=== PATIENT | female | born 1975 | race Caucasian/White ===

== ENCOUNTER → 2018-05-31 15:30 | Outpatient (CLI) | payer OTHER, SELFPAY ==
--- NOTE | 2018-05-31 15:34 | RAD_ITS ---
STUDY: X-RAY - LEFT KNEE REASON FOR EXAM: Female, 42 years old. Pain TECHNIQUE: Four view(s) of the knee were obtained. COMPARISON: None. FINDINGS: The distal femur is unremarkable. The proximal tibia is unremarkable. Normal medial femorotibial compartment. Normal lateral femorotibial compartment. Normal patellofemoral articulation. There is minimal fullness above the patella. The soft tissue structures are unremarkable. RAD/Knee 4 or More Views IMPRESSION: There are no significant osseous abnormalities. There is a small joint effusion which can indicate internal derangement. Electronically Signed: Nicolasa Caballero MD at 0:07 EDT Tel Direct: [phone], Service support ,
== END ==
PROVIDERS: Family Provider Family Medicine; PCP Family Medicine; Referring Provider Family Medicine; Visit Provider Family Medicine
DX: M25.561 Pain in right knee (principal)
CPT/HCPCS: 73564

== ENCOUNTER → 2019-05-11 16:28 | Outpatient (CLI) | payer OTHER, SELFPAY ==
--- NOTE | 2019-05-11 16:31 | RAD_ITS ---
STUDY: X-RAY - CERVICAL SPINE REASON FOR EXAM: Female, 43 years old. Neck pain TECHNIQUE: 5 view(s) of the cervical spine were obtained. COMPARISON: None FINDINGS: Normal anterior atlantoaxial articulation. Normal odontoid process. Normal cervical lordosis. Degenerative disc disease at C4-5 and C5-6 levels. Normal visualized intervertebral neuroforamina. The soft tissue structures are unremarkable. RAD/Cerv Spine 4 or 5 Views IMPRESSION: Degenerative disc disease at C4-5 and C5-6 levels. Electronically Signed: Chinmay Rowley MD at 17:23 EDT Tel , Service support ,
== END ==
PROVIDERS: Family Provider Family Medicine; PCP Family Medicine; Referring Provider Family Medicine; Visit Provider Family Medicine
DX: M50.321 Other cervical disc degeneration at C4-C5 level (principal)
CPT/HCPCS: 72050

== ENCOUNTER → 2021-07-20 11:00 | Outpatient (CLI) | payer OTHER, SELFPAY ==
--- NOTE | 2021-07-20 11:03 | RAD_ITS ---
STUDY: X-RAY - UNILATERAL RIBS ( RIGHT ) WITH CHEST REASON FOR EXAM: Female, 45 years old. Pain and bruising on lower and posterior ribs, right greater than left. TECHNIQUE - RIBS: 2 view(s) of the ribs. TECHNIQUE - CHEST: Single frontal view of the chest. COMPARISON: None. FINDINGS - RIBS: Normal visualized ribs without a demonstrated fracture. FINDINGS - CHEST: The lungs are clear and expanded. There is no demonstrated pleural abnormality. Normal size heart. Normal mediastinum and stefanie. Normal visualized pulmonary arteries. Normal visualized aortic arch and descending thoracic aorta. Thoracic spondylosis. Normal visualized ribs, clavicles, and shoulders. There is no demonstrated abnormality of the visualized soft tissue structures of the upper abdomen. RAD/Ribs Uni Min 3V w/PA Chest IMPRESSION: RIBS: Normal x-ray examination of the ribs. CHEST: No active or acute cardiopulmonary disease. Electronically Signed: Alonso Lemus MD at 12:58 EST , Service support ,
== END ==
PROVIDERS: PCP Family Medicine; Referring Provider Family Medicine; Visit Provider Family Medicine
DX: S22.39XA Fracture of one rib, unspecified side, initial encounter for closed fracture (principal)
CPT/HCPCS: 71101

== ENCOUNTER → 2022-06-25 | Outpatient (CLI) | payer OTHER, SELFPAY ==
[2022-06-25 17:47] LABS: Absolute Lymphocyte Count 2.37 X10^3/uL (0.83-4.51); Absolute Neutrophil Count 6.6 X10^3/uL (2.0-7.7); Basophil# 0.05 X10^3/uL; Basophil% 0.5 % (0-1); Eosinophil# 0.12 X10^3/uL; Eosinophils% 1.2 % (0-5); Hematocrit 41.5 % (37-47); Hemoglobin 13.7 g/dL (12.0-15.0); Lymphocyte # 2.37 X10^3/ul (0.83-4.51); Lymphocyte % 24.1 % (19-41); Mean Corpuscular Volume 84.7 fL (81-99); Mean Platelet Vol. 11.7 fl (6.2-12.0); Monocyte# 0.62 X10^3/uL; Monocyte% 6.3 % (0-10); NRBC Flagged by Analyzer 0 % (0-5); Neutrophil # 6.62 X10^3/uL (2.7-7.7); Neutrophil % 67.5 % (47-70); Platelet Count 219 K/mm3 (150-450); RBC Distribution Width CV 12.9 % (11.6-14.6); RBC Distribution Width SD 39.2 fl (35.1-43.9); White Blood Count 9.8 K/mm3 (4.4-11.0)
[2022-06-25 18:28] LABS: ALB/GLOB Ratio 1.1 RATIO (0.9-2.4); AST(SGOT) 21 U/L (15-37); Alanine Aminotransfer ALT/SGPT 31 U/L (13-56); Albumin, Serum 3.8 g/dL (3.2-5.0); Alkaline Phosphatase 69 U/L (45-117); Anion Gap 5 (5-15); BUN 14 mg/dL (7-18); BUN/Creat Ratio 21.1 RATIO (10-20); Calcium,Total 8.7 mg/dL (8.5-10.1); Chloride 105 mmol/L (98-107); Creatinine, Serum 0.66 mg/dL (0.55-1.02); EST Glomerular Filtration Rate 100 mL/min (>60); Est Glom Filt Rate - Afr Amer 122 mL/min (>60); Globulin 3.6 g/dL (2.2-4.2); Glucose 85 mg/dL (74-106); Potassium 3.5 mmol/L (3.5-5.1); Protein, Total 7.4 g/dL (6.4-8.2); Sodium Level 139 mmol/L (136-145); Thyroid Stim Hormone (TSH) 1.62 uIU/mL (0.358-3.74)
== END | disposition home or self-care (01) ==
LOC: MTLAB 16:01
PROVIDERS: PCP Family Medicine; Referring Provider Nurse Practitioner Family; Visit Provider Nurse Practitioner Family
DX: R53.83 Other fatigue (principal)
CPT/HCPCS: 36415; 80053; 84443; 85025

== ENCOUNTER → 2022-10-25 | Outpatient (CLI) | payer OTHER, SELFPAY ==
[2022-10-25 17:34] LABS: Hematocrit 47.4 % (37-47); Hemoglobin 15.7 g/dL (12.0-15.0); Mean Corp Hgb Conc 33.1 g/dL (32-36); Mean Corpuscular Hgb 27.6 pg (27.0-32.0); Mean Corpuscular Volume 83.5 fL (81-99); Platelet Count 294 K/mm3 (150-450); RBC Distribution Width CV 12.6 % (11.6-14.6); RBC Distribution Width SD 37.7 fl (35.1-43.9); Red Blood Count 5.68 M/mm3 (4.2-5.4); White Blood Count 8.3 K/mm3 (4.4-11.0)
[2022-10-25 17:55] LABS: Anion Gap 11 (5-15); BUN 11 mg/dL (7-18); BUN/Creat Ratio 12.7 RATIO (10-20); Calcium,Total 9.4 mg/dL (8.5-10.1); Chloride 103 mmol/L (98-107); Creatinine, Serum 0.86 mg/dL (0.55-1.02); EST Glomerular Filtration Rate 74 mL/min (>60); Est Glom Filt Rate - Afr Amer 90 mL/min (>60); Glucose 117 mg/dL (74-106); Potassium 3.4 mmol/L (3.5-5.1); Sodium Level 139 mmol/L (136-145)
== END | disposition home or self-care (01) ==
PROVIDERS: PCP Family Medicine; Visit Provider Nurse Practitioner Family
DX: R31.9 Hematuria, unspecified (principal); R11.0 Nausea
CPT/HCPCS: 36415; 80048; 85027; 87086; 87088

== ENCOUNTER 2024-01-30 11:55 | Outpatient (CLI) | payer OTHER, SELFPAY ==
[2024-01-30 16:40] LABS: Hemoglobin A1c 5.3 % (3.8-5.6)
[2024-01-30 16:54] LABS: Vitamin B12 248 pg/mL (211-911)
[2024-01-30 17:03] LABS: Thyroid Stim Hormone (TSH) 0.53 uIU/mL (0.358-3.74)
== END 2024-01-30 23:59 | disposition home or self-care (01) ==
LOC: MFPLAB 11:58
PROVIDERS: PCP Family Medicine; Visit Provider Family Medicine
DX: R20.2 Paresthesia of skin (principal)
CPT/HCPCS: 36415; 82607; 83036; 84443

== ENCOUNTER → 2024-04-11 | Outpatient (CLI) | payer OTHER, SELFPAY ==
--- NOTE | 2024-04-11 14:27 | NEURO ---
NCS and/or EMG Patient Report Ordering Doctor: Jackson Aleman DATE OF SERVICE: 04/11/24 Yuly presents for electrodiagnostic testing of the lower limbs. She reports numbness and tingling in both feet. She reports difficulty with balance. Electrodiagnostic findings: Left peroneal motor nerve demonstrates normal distal latency, amplitude and conduction velocity. Right peroneal motor nerve demonstrates normal distal latency, amplitude with borderline reduced conduction velocity. Tibial motor responses within normal limits bilaterally. Prolonged left tibial F?wave. Borderline prolonged H?reflex bilaterally. Absent sural response bilaterally. Prolonged left and right superficial peroneal latency. Needle EMG testing was performed the lower limbs. All muscles tested showed no evidence of denervation with normal motor unit action potentials. Electrodiagnostic impression: This is an abnormal study in the lower limbs 1. Electrodiagnostic findings suggestive of peripheral polyneuropathy, with primarily sensory nerve involvement. 2. No electrodiagnostic evidence is noted for lumbosacral radiculopathy. Multi Select Codes Neurology Neurology Interp Codes: 76010-42 Musc test done w/n test comp (interp) (2) and 40965-33 Nrv cndj test 9-10 studies (interp)
== END | disposition home or self-care (01) ==
PROVIDERS: PCP Family Medicine; Referring Provider Orthopaedic Surgery; Visit Provider Orthopaedic Surgery
DX: M54.16 Radiculopathy, lumbar region (principal); R20.2 Paresthesia of skin
CPT/HCPCS: 95886; 95911

== ENCOUNTER 2024-04-30 14:00 | Outpatient (CLI) | payer OTHER, SELFPAY ==
--- NOTE | 2024-05-03 08:56 | EKG12_ITS ---
Test Reason : PRE OP Blood Pressure : / mmHG Vent. Rate : 056 BPM Atrial Rate : 056 BPM P-R Int : 144 ms QRS Dur : 094 ms QT Int : 426 ms P-R-T Axes : 023 015 020 degrees QTc Int : 411 ms Sinus bradycardia Otherwise normal ECG Confirmed by Justin Ruiz ([id number]), book editor LYDIA MCGRATH ([id number]) on 05/04/2024 6:01:33 AM Referred By: Jackson Aleman Confirmed By:Justin Ruiz
--- NOTE | 2024-05-03 09:15 | RAD_ITS ---
INDICATION: PREOP EXAMINATION/TECHNIQUE: X-RAY - XR Chest 2 Views COMPARISON: July 20, 2021 FINDINGS: LINES/DEVICES: None. LUNGS: No consolidation, edema or effusion. No pneumothorax. MEDIASTINUM AND CARDIOVASCULAR STRUCTURES: Cardiac silhouette not enlarged. Central airways and mediastinal contour are unremarkable. BONES AND SOFT TISSUES: Mild degenerative vertebral changes. RAD/Chest PA and Lateral IMPRESSION: No radiographic evidence of acute cardiopulmonary disease. Electronically Signed: Alfredo Toro DO at 17:22 EDT ,
[2024-05-03 10:11] LABS: Absolute Lymphocyte Count 1.54 X10^3/uL (0.83-4.51); Absolute Neutrophil Count 4.8 X10^3/uL (2.0-7.7); Basophil# 0.03 X10^3/uL; Basophil% 0.4 % (0-1); Eosinophil# 0.11 X10^3/uL; Eosinophils% 1.6 % (0-5); Hemoglobin 12.9 g/dL (12.0-15.0); Lymphocyte # 1.54 X10^3/ul (0.83-4.51); Lymphocyte % 22.1 % (19-41); Mean Corp Hgb Conc 33.9 g/dL (32-36); Mean Corpuscular Hgb 28.2 pg (27.0-32.0); Mean Corpuscular Volume 83.2 fL (81-99); Mean Platelet Vol. 11.2 fl (6.2-12.0); Monocyte# 0.45 X10^3/uL; Monocyte% 6.4 % (0-10); NRBC Flagged by Analyzer 0 % (0-5); Neutrophil # 4.77 X10^3/uL (2.7-7.7); Neutrophil % 68.4 % (47-70); Platelet Count 204 K/mm3 (150-450); RBC Distribution Width CV 13.4 % (11.6-14.6); RBC Distribution Width SD 39.8 fl (35.1-43.9); Red Blood Count 4.57 M/mm3 (4.2-5.4)
[2024-05-03 10:27] LABS: Prothrombin Time (Protime)PT. 13.5 SECONDS (11.7-14.9)
[2024-05-03 10:28] LABS: Partial Thromboplast Time 27.1 Seconds (24.1-36.2)
[2024-05-03 11:16] LABS: Anion Gap 6 (5-15); BUN 13 mg/dL (7-18); BUN/Creat Ratio 16.6 RATIO (10-20); Calcium,Total 9.6 mg/dL (8.5-10.1); Chloride 110 mmol/L (98-107); Creatinine, Serum 0.78 mg/dL (0.55-1.02); EST Glomerular Filtration Rate 83 mL/min (>60); Est Glom Filt Rate - Afr Amer 100 mL/min (>60); Glucose 114 mg/dL (74-106); Magnesium 1.9 mg/dL (1.6-2.6); Potassium 3.9 mmol/L (3.5-5.1); Sodium Level 142 mmol/L (136-145)
== END 2024-04-30 23:00 | disposition home or self-care (01) ==
LOC: SDC 10-10 21:54
PROVIDERS: PCP Family Medicine; Referring Provider Orthopaedic Surgery; Visit Provider Orthopaedic Surgery
DX: Z01.818 Encounter for other preprocedural examination (principal)
CPT/HCPCS: 36415; 71046; 80048; 83735; 85025; 85610; 85730; 87077; 87081; 93005

== ENCOUNTER → 2024-06-06 | Outpatient (CLI) | payer OTHER, SELFPAY ==
[2024-06-06 10:02] LABS: Erythrocyte Sedimentation Rate 7 mm/hr (0-30)
[2024-06-07 12:10] LABS: ANTINUCLEAR ANTIBODIES DIRECT Negative (Negative)
[2024-06-07 15:09] LABS: Albumin 3.7 g/dL (2.9-4.4); Alpha-1-Globulins 0.3 g/dL (0.0-0.4); Alpha-2-Globulins 0.9 g/dL (0.4-1.0); Gamma Globulin 1.1 g/dL (0.4-1.8); Immunoglobulin A 110 mg/dL (87-352); Immunoglobulin G 984 mg/dL (586-1602); Immunoglobulin M 157 mg/dL (26-217)
== END | disposition home or self-care (01) ==
LOC: MTLAB 08:46
PROVIDERS: PCP Family Medicine; Referring Provider Psychiatry & Neurology Neurology; Visit Provider Psychiatry & Neurology Neurology
DX: G62.9 Polyneuropathy, unspecified (principal)
CPT/HCPCS: 36415; 82784; 84165; 85652; 86038; 86140; 86225; 86235; 86334

== ENCOUNTER → 2024-06-26 | Outpatient (CLI) | payer OTHER, SELFPAY ==
--- NOTE | 2024-06-26 08:38 | VDLE_ITS ---
Reason For Study: BLE Swelling RIGHT LEFT CFV is compressible, phasic, and INCOMPETENT CFV is compressible, phasic, and INCOMPETENT for greater than 1.0 second. for greater than 1.0 second. FV is compressible, spontaneous, phasic, FV is compressible, spontaneous, phasic, competent and demonstrates normal competent and demonstrates normal augmentation. augmentation. POP V is compressible, spontaneous, phasic, POP V is compressible, spontaneous, phasic, competent and demonstrates normal competent and demonstrates normal augmentation. augmentation. T/P Trunk is compressible. T/P Trunk is compressible. PTV is compressible. PTV is compressible. PerV is compressible. LT PerV is compressible. SFJ is INCOMPETENT and measures 0.63 cm. SFJ is competent and measures 0.59 cm. GSV proximal thigh measures 0.29 x 0.32 cm. GSV proximal thigh measures 0.40 x 0.37 cm. GSV at knee measures 0.45 x 0.47 cm. GSV at knee measures 0.38 x 0.49 cm. GSV is competent throughout. SSV at junction is competent and measures SSV at junction is competent and measures 0.36 cm. 0.33 cm. SSV mid calf is competent and measures 0.15 x SSV mid calf is competent and measures 0.19 0.20 cm. cm. Difficult to assess for reflux below knee due Difficult to assess for reflux below knee due to very shallow superficial veins. to very shallow superficial veins. Procedure Exam performed in department. This is a venous duplex using B-mode, color flow and spectral Doppler. The exam was diagnostic. Patient was scanned in reverse Trendelenburg position during reflux assessment. VL/Venous Duplex US - Mushtaq Extrem Interpretation Summary Deep veins of the bilateral lower extremities are patent and compressible segme ntally. There is no evidence of bilateral lower extremity deep vein thrombosis. The bilateral great saphenous veins appear patent and compressible segmentally. Positive for reflux in the right common femoral vein, saphenofemoral junction. Positive for reflux in the left common femoral vein Ordering Physician: Sukumar Duncan Referring Physician: Chrissy Rosa Performed By: Joselito Smith RVT
== END | disposition home or self-care (01) ==
PROVIDERS: PCP Family Medicine; Referring Provider Psychiatry & Neurology Neurology; Visit Provider Psychiatry & Neurology Neurology
DX: I87.2 Venous insufficiency (chronic) (peripheral) (principal); G62.9 Polyneuropathy, unspecified
CPT/HCPCS: 93970

== ENCOUNTER → 2024-07-23 | Outpatient (CLI) | payer OTHER, SELFPAY ==
[2024-07-23 10:05] LABS: Absolute Lymphocyte Count 1.64 X10^3/uL (0.83-4.51); Absolute Neutrophil Count 5.5 X10^3/uL (2.0-7.7); Basophil# 0.07 X10^3/uL; Basophil% 0.9 % (0-1); Eosinophil# 0.27 X10^3/uL; Eosinophils% 3.3 % (0-5); Hematocrit 42.5 % (37-47); Hemoglobin 14.5 g/dL (12.0-15.0); Lymphocyte # 1.64 X10^3/ul (0.83-4.51); Lymphocyte % 20.3 % (19-41); Mean Corp Hgb Conc 34.1 g/dL (32-36); Mean Corpuscular Hgb 28.5 pg (27.0-32.0); Mean Corpuscular Volume 83.7 fL (81-99); Mean Platelet Vol. 11.6 fl (6.2-12.0); Monocyte# 0.62 X10^3/uL; Monocyte% 7.7 % (0-10); NRBC Flagged by Analyzer 0 % (0-5); Neutrophil # 5.46 X10^3/uL (2.7-7.7); Neutrophil % 67.6 % (47-70); Platelet Count 210 K/mm3 (150-450); RBC Distribution Width CV 12.4 % (11.6-14.6); Red Blood Count 5.08 M/mm3 (4.2-5.4); White Blood Count 8.1 K/mm3 (4.4-11.0)
[2024-07-23 17:25] LABS: Vitamin B12 293 pg/mL (211-911)
== END | disposition home or self-care (01) ==
PROVIDERS: PCP Family Medicine
DX: G62.9 Polyneuropathy, unspecified (principal)
CPT/HCPCS: 36415; 82607; 85025